=== PATIENT | male | born 1965 | race African-American/Black ===

== ENCOUNTER 2022-06-28 10:31 | Emergency (ER) | payer BC ==
[2022-06-28] MEDS ORDERED: Ketorolac Tromethamine 30 MG/ML VIAL ONE (12:32)
== END 2022-06-28 12:40 | disposition home or self-care (01) ==
LOC: CSHERS 10:31
DX: S83.91XA Sprain of unspecified site of right knee, initial encounter (principal); I10 Essential (primary) hypertension; X58.XXXA Exposure to other specified factors, initial encounter
CPT/HCPCS: 96372; J1885